=== PATIENT | male | born 1955 | race African-American/Black ===

== ENCOUNTER 2018-12-12 06:40 | Emergency (ER) | payer OTHER ==
[~2018-12-12] VITALS: Ht 182.9 cm; Wt 158.8 kg
[2018-12-12] MEDS ORDERED: cloNIDine HCL 0.1 MG TAB ONE (06:50)
[2018-12-12] MEDS ORDERED: HYDROcodone-ACET 7.5/325MG TAB PO ONE (10:00)
[2018-12-12 14:35] VITALS: BP 140/76
== END 2018-12-12 12:47 | disposition home or self-care (01) ==
LOC: ER 07:56
DX: S39.012A Strain of muscle, fascia and tendon of lower back, initial encounter (principal); I10 Essential (primary) hypertension; V43.52XA Car driver injured in collision with other type car in traffic accident, initial encounter; Y93.89 Activity, other specified; Y99.8 Other external cause status; Y92.410 Unspecified street and highway as the place of occurrence of the external cause
CPT/HCPCS: 70450; 71046; 72125; 72128; 72131; 73562